=== PATIENT | male | born 1990 | race Two or more races ===

== ENCOUNTER 2023-03-11 14:57 | Outpatient (REF) | payer BC, OTHER, SELFPAY ==
[2023-03-11 17:25] LABS: Influenza A PCR NEGATIVE (Negative); Influenza B PCR NEGATIVE (Negative); Resp Syncy Virus RNA Qual PCR NEGATIVE (Negative); SARS COV2 PCR INHOUSE NEGATIVE (Negative)
== END 2023-03-11 14:58 | disposition home or self-care (01) ==
LOC: HO.LAB 14:57
PROVIDERS: Visit Provider Physician Assistant Medical
DX: Z20.822 Contact with and (suspected) exposure to COVID-19 (principal); R09.89 Other specified symptoms and signs involving the circulatory and respiratory systems
CPT/HCPCS: 0241U

== ENCOUNTER 2024-01-06 15:22 | Outpatient (AMB) | payer BC, SELFPAY ==
[2024-01-06 15:27] VITALS: BP 126/80; PULSE 91; O2SAT 95; BMI 37.0
--- NOTE | 2024-01-06 15:27 | A.OFFPC_ITS ---
Vital Signs 01/06/24 15:27 Height 5 ft 11 in Weight 265 lb BMI 37.0 BP 126/80 Blood Pressure Location Lt brachial Position Sitting Pulse 91 Pulse Source Pulse Oximeter Pulse Oximetry (%) 95 Oxygen Delivery Method Room Air Intake Visit Reasons: NO Est car HTN Rescheduled Intake Note: Pt is here today for a New patient visit. 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 Accompanied by: Self / Same As Patient Allergies varenicline [From Chantix] Allergy (Intermediate, Verified 01/06/24 15:58) Angioedema Medication List - Last Reconciled 01/06/24 by ALL Polanco No Known Home Meds Tobacco use date assessed: 01/06/24 Dental Screening Dental Screen Date: 01/06/24 Did you have a dental visit in the last 12 months?: Yes Did you have a dental problem in the last 6 months where you did not have access to dental care?: No Was dental information given to patient?: Patient has dentist HPI HPI Comments History of Present Illness Details Patient is a 33-year-old male in today to establish care. He has a past medical history significant for hypertension, which is now in control, and diverticulosis. Patient is here for DCF paperwork, received Tdap vaccine at today's visit. Patient has history of bad reaction to the influenza vaccine, will not receive today. Patient has a primary complaint of migraine headaches, these 2-3 episodes per week. Patient states that he takes ibuprofen with good effect. Patient denies aura, nausea, dizziness, chest pain, shortness a breath, numbness. Patient will be instructed to take 400 mg of magnesium daily as prophylactic treatment, will give meloxicam for patient to take in place of ibuprofen to limit GI distress. REPLACED BY [facility] Medical History Diverticulitis Surgical History No pertinent past surgical history Family History Father Hypertension Mother No problems noted. Social History Housing: House Patient Tobacco Use Status: Former Tobacco user (7 years ago) e-Cigarette/Vaping Use: Never Used Current occupational status: employed Cognitive needs: No Hearing needs: No Vision needs: Yes Questionnaire PHQ-9 Over the last 2 weeks, how often have you been bothered by any of the following problems? 1. Little interest or pleasure in doing things: not at all 2. Feeling down, depressed, or hopeless: not at all 3. Trouble falling or staying asleep, or sleeping too much: not at all 4. Feeling tired or having little energy: not at all 5. Poor appetite or overeating: not at all 6. Feeling bad about yourself - or that you are a failure or have let yourself or your family down: not at all 7. Trouble concentrating on things, such as reading the newspaper or watching t elevision: not at all 8. Moving or speaking so slowly that other people could have noticed. Or the opposite - being so fidgety or restless that you have been moving around a lot more than usual: not at all 9. Thoughts that you would be better off or of hurting yourself in some way: not at all Total score: 0 Depression Screening Interpretation: Negative Depression Screening Done: Yes 59725 - PHQ-9 Billing: Yes Source: Developed by Drs. Charanjit Montero, Marilyn Greene, Seng Varela and colleagues, with an educational chyna from [employer]. Thrive Questionnaire Date Thrive assessed: 01/06/24 I am a: Patient What is your living situation today?: I have a steady place to live Within the past 12 months, did the food you bought not last and you didn't have the money to get more?: Never true Within the past 12 months, did you worry whether your food would run out before you got money to buy more?: Never true Do you have trouble paying for medicines?: No Do you have trouble getting transportation to medical appointments?: No Do you have trouble paying your heating and electricity bill?: No Do you have trouble taking care of your child, family member or friend?: No Do you have trouble with day-to-day activities such as bathing, preparing meals, shopping, managing finances, etc.?: No Are you currently unemployed and looking for a job?: No Are you interested in more education?: No Please select the resources that you would like help with: None Currently or been in a relationship where the following occur: no concerns reported THRIVE Score: 0 AUDIT C Alcohol Use Questionnaire (AUDIT-C) 1. How often do you have a drink containing alcohol?: Monthly or less 2. How many drinks containing alcohol do you have on a typical day when you are drinking?: 1 or 2 3. How often do you have six or more drinks on one occasion?: Never Total Score: 1 DRAGAN-7 AMB Questionnaire DRAGAN-7 Date DRAGAN - 7 assessed: 01/06/24 Feeling nervous, anxious, or on edge: 0 = Not at all Not being able to stop or control worryin = Not at all Worrying too much about different things: 0 = Not at all Trouble relaxin = Not at all Being so restless that it is hard to sit still: 0 = Not at all Becoming easily annoyed or irritable: 0 = Not at all Feeling afraid as if something awful might happen: 0 = Not at all Total DRAGAN-7 score (0-4 normal; 5-9 mild; 10-14 moderate; 15-21 severe): 0 Source: Developed by Drs. Charanjit Montero, Marilyn Greene, Seng Varela and colleagues, with an educational chyna from [employer]. DRAGAN-7 Assessment Billing DRAGAN-7 Assessment Tool: DRAGAN-7 Assessment 52283 Review of Systems Const Details: Constitutional : No Weight loss, No Fever, No Chills, No Fatigue, No Malaise ENT/Mouth : No sore throat, No Rhinorrhea Eyes: No Eye Pain, No Swelling, No Redness Cardiovascular : No Chest Pain, No SOB, No Dyspnea on Exertion, No Orthopnea, No Edema, No Palpitations Respiratory : No Cough, No Sputum, No Wheezing Gastrointestinal : No Nausea, No Vomiting, Admits some Diarrhea, No Constipation, Admits intermittent abdominal Pain, No Hematochezia, No Melena Genitourinary : No Dysuria, No Urinary Frequency, No Hematuria, Musculoskeletal : No joint pain, No Myalgias, No Joint Swelling Skin : No Skin Lesions, No rash Neuro : No Weakness, No Numbness, No Dizziness, Admits intermittent Headache Psych : No Anxiety/Panic, No Depression Heme/Lymph: No Bruising, No Bleeding,No Lymphadenopathy Endocrine : No Polyuria, No Polydipsia All other systems reviewed and are negative Physical exam (Primary Care) Vital Signs: Last Vital Signs Pulse 91 01/06/24 15:27 BP 126/80 01/06/24 15:27 Pulse Ox 95 01/06/24 15:27 Oxygen Delivery Method Room Air 01/06/24 15:27 BMI result Body Mass Index 37.0 Tobacco/Smoking Status: Tobacco use Status Tobacco use date assessed 01/06/24 01/06/24 15:34 Patient Tobacco Use Status Former Tobacco user (7 years 01/06/24 15:34 ago) e-Cigarette/Vaping Use Never Used 01/06/24 15:34 PHQ-9: PHQ-9 Score PHQ-9: Total score 0 01/07/24 09:02 Depression Screening Interpretation: Negative Thrive Assessment: Date of Thrive Assessment Date Thrive assessed 01/06/24 01/06/24 16:44 Currently or been in a relationship where the following occur: no concerns reported Const Other: Appearance: Alert.? Oriented X3.? No acute distress.? Head: Normocephalic, atraumatic. Neck: Normal inspection.? Neck supple.? CVS: Normal heart rate and rhythm.? Pulses normal.? Respiratory: No respiratory distress.? Breath sounds normal.? Abdomen: Tender to palpation epigastric and LLQ. Bowel sounds active/normal. Skin: Skin warm and dry.? Normal skin color.? Normal skin turgor.? Neuro: Oriented X 3.? No motor deficit.? No sensory deficit. 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 The patient will be given meloxicam replacement of ibuprofen to limit GI distress. Patient will get back to the office in 2 weeks if occurrences of migraines do not decrease. Code(s): G43.909 - Migraine, unspecified, not intractable, without status migrainosus Qualifiers: Intractability: not intractable Migraine type: unspecified Status migrainosus presence: without status migrainosus Qualified Code(s): G43.909 - Migraine, unspecified, not intractable, without status migrainosus Plan: Take your medications as prescribed. If you were prescribed antibiotics today, it is important that you take your medication to their entirety, do not skip any doses, do not finish them early. Follow-up with your primary care provider this week. Return to the emergency department with new or worsening symptoms. Such as fevers, chills, chest pain, shortness of breath, nausea, vomiting, dizziness, headache, vision changes, lethargy In case of emergency call 911 (2) Abdominal pain: Comment: Patient has tenderness left lower quadrant. Will draw lipase, amylase, ESR, CBC, CMP, UA. Patient will be given dicyclomine and pantoprazole. Will get back to patient with lab results and provide intervention based on those results. Patient denies fever. Code(s): R10.9 - Unspecified abdominal pain Qualifiers: Abdominal location: left lower quadrant Qualified Code(s): R10.32 - Left lower quadrant pain Plan: Patient will get labs drawn today. Will follow-up with results. Plan Patient will follow-up physical exam in 1 month Orders: Orders Comprehensive Met. Panel 01/06/24 Z91.89 - Other specified personal risk factors, not elsewhere classified Complete Blood Count Auto Diff 01/06/24 Z13.0 - Encounter for screening for diseases of the blood and blood-forming organs and certain disorders involving the immune mechanism Vitamin B6 01/06/24 Z13.21 - Encounter for screening for nutritional disorder UA CC w/rflx Micro + Cult 01/06/24 Z13.89 - Encounter for screening for other disorder TSH reflex Free T4 01/06/24 Z13.29 - Encounter for screening for other suspected endocrine disorder Hemoglobin A1c 01/06/24 Z13.1 - Encounter for screening for diabetes mellitus Lipase 01/06/24 R10.9 - Unspecified abdominal pain Amylase 01/06/24 R10.9 - Unspecified abdominal pain Erythrocyte Sedimentation Rate 01/06/24 R10.9 - Unspecified abdominal pain Lipid Panel 01/06/24 Z13.220 - Encounter for screening for lipoid disorders Vitamin D 25-OH (D2 and D3) 01/06/24 Z13.21 - Encounter for screening for nutritional disorder Vitamin B12 01/06/24 Z13.21 - Encounter for screening for nutritional disorder Testosterone, Free/Total 01/06/24 R68.82 - Decreased libido TDaP Immunization 01/06/24 Z23 - Encounter for immunization Medications: New dicyclomine 10 mg PO BID PRN 30 caps 0RF abdominal pain meloxicam Do not combine with other NSAIDS. Do not take on an empty stomach. 15 mg PO DAILY 20 tabs 0RF Headache pantoprazole 20 mg PO DAILY 90 tabs 0RF Review Flu Vaccine not done: patient reason (Bad reaction to flu shot, extreme lethargy.) Coding Level of Care Code Est Pt Level 3 (66560) Diagnoses Migraine without status migrainosus, not intractable, unspecified migraine type G43.909 Intractability: not intractable Migraine type: unspecified Status migrainosus presence: without status migrainosus Left lower quadrant abdominal pain R10.32 Abdominal location: left lower quadrant Additional Codes DRAGAN-7 Assessment Billing - DRAGAN-7 Assessment Tool: DRAGAN-7 Assessment 14013 ([id number]) Time Spent (min) 40
== END 2024-01-06 16:34 | disposition home or self-care (01) ==
PROVIDERS: PCP Nurse Practitioner Family; Visit Provider Nurse Practitioner Primary Care
DX: G43.909 Migraine, unspecified, not intractable, without status migrainosus (principal); R10.32 Left lower quadrant pain
CPT/HCPCS: 90471; 90715; 99214

== ENCOUNTER 2024-01-10 14:15 | Outpatient (REF) | payer BC, SELFPAY ==
[2024-01-10 16:03] LABS: MANUAL DIFF FLAG NO
[2024-01-10 16:15] LABS: Appearance Urine Clear; Color Urine Dark Yellow; Glucose Urine UA Negative (Negative); Leukocyte Esterase Urine Negative (Negative); Nitrite Urine Negative (Negative); Specific Gravity - Urine 1.025 (1.005-1.025); Urine Blood Negative (Negative); Urine Ketones Trace mg/dL (Negative); Urine Protein Negative (Neg-Trace)
[2024-01-10 16:19] LABS: Basophils Percent Auto 0.2 % (0-2); Eosinophils Absolute Auto 0.2 X10*3/uL (0.0-0.4); Eosinophils Percent Auto 1.6 % (0-4); Hematocrit 43.8 % (42.0-52.0); Hemoglobin 15.4 g/dl (14.0-18.0); Imm Gran Abs Auto 0.03 X10*3/uL (0.00-0.03); Imm Gran Pct Auto 0.3 % (0.0-0.4); Lymphocytes Absolute Auto 1.9 X10*3/uL (1.2-4.9); Mean Corpuscular HGB Conc 35.2 g/dl (31.0-36.0); Mean Corpuscular Hemoglobin 32.2 pg (27.0-33.0); Mean Corpuscular Volume 91.4 fL (80.0-98.0); Mean Platelet Volume 10.2 fL (9.4-12.4); Monocytes Absolute Auto 0.6 X10*3/uL (0.1-1.2); Monocytes Percent Auto 6.5 % (2-11); Neutrophils Absolute Auto 6.4 x10*3/uL (2.0-8.3); Neutrophils Percent Auto 70.4 % (45-73); Platelet Count 303 X10*3/uL (160-400); Red Blood Count 4.79 X10*6/uL (4.60-5.80); Red Cell Distribution Width 11.9 % (11.0-16.0); White Blood Count 9.2 X10*3/uL (4.8-10.8)
[2024-01-10 16:33] LABS: Estimated Average Glucose 88 mg/dL; Hemoglobin A1c % 4.7 % (<6.0)
[2024-01-10 16:36] LABS: Alanine Aminotransferase 49 U/L (0-40); Albumin Level 4.5 g/dL (3.5-5.0); Alkaline Phosphatase 67 U/L (39-117); Amylase 53 U/L (28-100); Anion Gap 14 (12-20); Aspartate Amino Transferase 30 U/L (5-37); Bilirubin Total 0.8 mg/dL (0.0-1.0); Blood Urea Nitrogen 7 mg/dL (9-16); Calcium 9.9 mg/dL (8.4-10.2); Carbon Dioxide 25 mmol/L (22-29); Chloride 106 mmol/L (96-108); Cholesterol 189 mg/dL (<200); Estimated Glomerular Filt Rate > 60; Glucose Random 83 mg/dL (60-115); HDL Cholesterol 40 mg/dL (>40); LDL Cholesterol Calculated 130 mg/dL (<100); Lipase 19 U/L (8-78); Potassium 3.6 mmol/L (3.3-5.1); Sodium 141 mmol/L (135-145); Total Protein 8.2 g/dL (6.5-8.0); Triglycerides 99 mg/dL (<150)
[2024-01-10 16:53] LABS: TSH reflex Free T4 2.19 uIU/mL (0.32-4.0)
[2024-01-10 16:55] LABS: Vitamin B12 652 pg/mL (200-900)
[2024-01-10 16:58] LABS: Erythrocyte Sedimentation Rate 39 MM/HR (0-15)
[2024-01-15 15:43] LABS: Vitamin B6 35.5 ng/mL (2.1-21.7)
[2024-01-18 15:28] LABS: Vitamin D 25-OH, D2 <4 ng/mL; Vitamin D 25-OH, D3 8 ng/mL; Vitamin D 25-OH, Total 8 ng/mL (30-100)
[2024-01-19 18:14] LABS: Testosterone, Free 78.1 pg/mL (35.0-155.0); Testosterone, Total 409 ng/dL (250-1100)
== END 2024-01-10 14:16 | disposition home or self-care (01) ==
LOC: HO.HMGCLDS 14:15
PROVIDERS: PCP Nurse Practitioner Primary Care; Visit Provider Nurse Practitioner Primary Care
DX: Z13.29 Encounter for screening for other suspected endocrine disorder (principal); Z13.0 Encounter for screening for diseases of the blood and blood-forming organs and certain disorders involving the immune mechanism; Z13.21 Encounter for screening for nutritional disorder; Z13.220 Encounter for screening for lipoid disorders; Z13.89 Encounter for screening for other disorder; Z13.6 Encounter for screening for cardiovascular disorders; R10.9 Unspecified abdominal pain; Z91.89 Other specified personal risk factors, not elsewhere classified; R68.82 Decreased libido
CPT/HCPCS: 36415; 80053; 80061; 81003; 82150; 82306; 82607; 83036; 83690; 84207; 84402; 84403; 84443; 85025; 85652